=== PATIENT | male | born 1940 | race Caucasian/White ===

== ENCOUNTER → 2019-10-30 | Outpatient (CLI) | payer MEDICARE, OTHER ==
[~2019-10-30] VITALS: Ht 165 cm; Wt 93.0 kg
[~2019-10-30] MED LIST: ALLO100T PO; LISI-552 PO; MELO15TA14 PO; MULT1CAP27 PO; NAPR220T66 PO
== END ==
LOC: EDUNIT# 11:00 → PREOP 12:12
PROVIDERS: ATTEND Orthopaedic Surgery
DX: Z01.810 Encounter for preprocedural cardiovascular examination (principal); S82.831A Other fracture of upper and lower end of right fibula, initial encounter for closed fracture; S93.401A Sprain of unspecified ligament of right ankle, initial encounter
CPT/HCPCS: 93005

== ENCOUNTER 2019-11-11 07:15 | Day surgery (SDC) | payer MEDICARE, OTHER ==
[2019-11-11] VITALS (11 sets, daily range): BP systolic 138–187; BP diastolic 83–119
[~2019-11-11] VITALS: Ht 165 cm; Wt 93.0 kg
[2019-11-11] MEDS ORDERED: BUPIVACAINE 0.5% 30 ML (SENSORCAINE) VIAL ONE (07:54)
[2019-11-11] MEDS: LACTATED RINGERS 1,000 ML IV PRN ×2 (08:00→10:14)
[2019-11-11] MEDS ORDERED: ceFAZolin INJECTION 1,000 MG in WATER (STERILE) FOR INJECTION 10 ML IV ONE (08:00)
[2019-11-11] MEDS ORDERED: proPOfol 200 MG/20 ML (DIPRIVAN) VIAL IV ONE (08:19)
[2019-11-11] MEDS ORDERED: MIDAZOLAM 2 MG/2 ML (VERSED) VIAL ONE (08:19)
[2019-11-11] MEDS ORDERED: LIDOCAINE PF 2% 5 ML (XYLOCAINE) VIAL ONE (08:19)
[2019-11-11] MEDS ORDERED: fentaNYL INJECTION 100 MCG/2 ML AMP ONE ×2 (08:19→10:06)
[2019-11-11] MEDS ORDERED: CIPR-225 PO (08:43)
[2019-11-11] MEDS ORDERED: HYDR-3812 PO (08:50)
--- NOTE | 2019-11-11 09:14 | Progress Note-Pre Operative ---
Pre-Operative Progress Note H&P Reviewed The H&P was reviewed, patient examined and no changes noted. Date Seen by Provider: Nov 11, 2019 Time Seen by Provider: 07:30 Date H&P Reviewed: Nov 11, 2019 Time H&P Reviewed: 07:15 Pre-Operative Diagnosis: right distal fibula fracture and syndesmosis disruption CHRISTINA FARFAN MD Nov 11, 2019 09:14
--- NOTE | 2019-11-11 09:18 | Progress Note-Post Operative ---
Post-Operative Progess Note Surgeon (s)/Tank Storage Supervisor (s) Surgeon CHRISTINA FARFAN MD Tank Storage Supervisor: Jack Lomeli Pre-Operative Diagnosis right distal fibula fracture and syndesmosis disruption Post-Operative Diagnosis right distal fibula fracture and syndesmosis disruption Procedure & Operative Findings Date of Procedure 11/11/19 Procedure Performed/Findings open reduction and internal fixation of the right distal fibula and syndesmosis Anesthesia Type GETA Estimated Blood Loss Estimated blood loss (mL): minimal Specimens/Packing Specimens Removed none Packing: none CHRISTINA FARFAN MD Nov 11, 2019 09:18
[2019-11-11] MEDS ORDERED: oxyCODONE/APAP 5/325MG (PERCOCET 5) TABLET PO PRN (09:30)
[2019-11-11] MEDS ORDERED: ONDANSETRON 4 MG/2 ML (SDV) Z0FRAN IVP PRN (10:00)
[2019-11-11] MEDS ORDERED: morphine INJ 10 MG/ML 1ML (SYR OR VIAL) IVP ONE (10:00)
[2019-11-11] MEDS ORDERED: HYDROmorphone 2 MG/ML VIAL (DILAUDID) IV ONE (10:00)
[2019-11-11] MEDS ORDERED: SEVOFLURANE (ULTANE) 15 ML INHAL SOLN ONE ×4 (10:17→10:19)
[2019-11-11] MEDS ORDERED: ONDANSETRON 4 MG/2 ML (SDV) Z0FRAN ONE (10:17)
[2019-11-11] MEDS ORDERED: LABETALOL HCL 20 MG/4 ML VIAL ONE (10:55)
[2019-11-11] MEDS ORDERED: OXYC-471 PO (12:00)
--- NOTE | 2019-11-11 12:09 | Diagnostic Imaging Report ---
INDICATION: Fluoroscopy for right ankle ORIF. Fluoroscopy was provided in the OR during right ankle ORIF. 24 seconds of fluoroscopic time was utilized. 3 images were obtained. Images demonstrate lateral plate and numerous screws transfixing distal fibular fracture. There is a syndesmotic anchor present. Alignment appears to be anatomic. IMPRESSION: Fluoroscopy for right ankle ORIF. Dictated by: Dictated on workstation # [id number]
--- NOTE | 2019-11-11 12:35 | Anesthesia-General Post-Op ---
General Patient Condition Mental Status/LOC: Same as Preop Cardiovascular: Satisfactory Nausea/Vomiting: Absent Respiratory: Satisfactory Pain: Controlled Complications: Absent Post Op Complications Complications None Follow Up Care/Instructions Patient Instructions None needed. Anesthesia/Patient Condition Patient Condition Patient is doing well, no complaints, stable vital signs, no apparent adverse anesthesia problems. No complications reported per nursing. MICHELLE ALVARADO CRNA Nov 11, 2019 12:35
--- NOTE | 2019-11-11 14:36 | Physical Therapy Ortho Eval ---
PT Orthopedic Evaluation Type of Surgery repair post right distal fibula fracture and syndesmosis disruption Prior Level of Function Current Living Status: Spouse (son lives nearby and is available to help) Locomotion (Upon Admit): Front Wheeled Walker Established Durable Medical Eq: Front Wheeled Walker, Manual Wheelchair Pt has WB limits prior to surgery. Subjective Subjective Agrees to PT. Reports he has been walking PWB prior to surgery. Son reports they will be able to get him into the house, even if they have to carry him in the wheelchair. Report they plan to get a knee scooter. Entry Into Home: Stairs With Railing ROM ROM: WFL (right ankle NT) Strength Strength: WFL Transfer Transfers (B, C, W/C) (FIM): 5 (SBA with transfers with cues for safety. ) Gait Gait Assistive Device: FWW Right Lower Extremity: Right Weight Bearing Status RLE: Touch Toe Bearing Left Lower Extremity: Left Weight Bearing Status LLE: Full Weight Bearing Summary/Comments Pt ambulated x 40 ft with FWW, at a NWB status. Slow with gait but no chad LOB noted. Pt deferred stair training, reporting he feels he can manage as he was able to do so before. Assessment/Goals Goal Time Frame: 1 Visit Safe Ambulation: Yes Safe ambulation short distances and was NWB instead of TTWB. Cued pt that he could TTWB but he chose to be NWB for this visit. Educated pt and family on safety, TTWB status, stair training/sequencing. Verbalized understanding of all. Pt slow with gait and transfers but able to complete. Son reports he will be available as needed. Plan Treatment Plan: Discharge PT/Family Agrees to Plan: Yes Time Time In: 1230 Time Out: 1300 Total Billed Treatment Time: 30 Billed Treatment Time visit EVM 15 GT 15 SU CROCKER PT Nov 11, 2019 14:36
--- NOTE | 2019-11-11 15:06 | OPERATIVE REPORT ---
DATE OF SERVICE: 11/11/2019 PREOPERATIVE DIAGNOSES: 1. Right lateral malleolus fracture. 2. Right syndesmosis disruption. POSTOPERATIVE DIAGNOSES: 1. Right lateral malleolus fracture. 2. Right syndesmosis disruption. PROCEDURES: 1. Right lateral malleolus open reduction and internal fixation. 2. Right syndesmosis open reduction and internal fixation. SURGEON: Nakul Martino MD STORM CHASER: Jack Lomeli, who assisted throughout the procedure and closed the incision. ANESTHESIA: General endotracheal by Ellie Gardiner CRNA. TOURNIQUET TIME: 36 minutes at 300 mmHg. ESTIMATED BLOOD LOSS: Minimal. DRAINS: None. COMPLICATIONS: None. POSTOPERATIVE PLAN: Routine protocol. The patient was transferred to the recovery room awake and stable condition. STATEMENT OF MEDICAL NECESSITY: The patient is a 79-year-old gentleman who injured his right ankle approximately 3 weeks ago. Due to medical issues, he could not be scheduled until today. Radiographs revealed a Christopher type C lateral malleolus fracture with widening of the syndesmosis. Because of this, it was recommended that the patient undergo operative fixation. DESCRIPTION OF PROCEDURE: After risks and benefits of procedure were discussed and questions were answered, an informed consent was signed and placed on chart. The operative site was confirmed in the preoperative holding area initialed by the surgeon. The patient then transferred to the operating room. After adequate levels of general endotracheal anesthetic were obtained, a timeout was called, confirming the operative site. Right lower extremity was prepped and draped in the usual sterile fashion with the leg elevated, tourniquet was inflated to 300 mmHg. A lateral approach was utilized over the distal fibula. Underlying soft tissues were carefully dissected. The fracture site was identified and a 3.5 fully threaded Synthes cortical screw was placed across the fracture site with anatomic reduction obtained. A 6-hole one-third tubular plate was then placed and three cortical screws were placed proximally, three cortical screws placed distally with all excellent purchase. Fluoroscopy in AP and lateral planes revealed anatomic reduction of fracture with well-placed hardware. Under fluoroscopic visualization, a TightRope was then placed for internal fixation of the syndesmosis this was placed approximately 2 cm proximal parallel to the joint surface. This was felt to be in excellent position. The button was flipped and then tensioned with the ankle held in dorsiflexion. Under lifetime fluoroscopy revealed a stable syndesmosis and well-placed hardware in the AP and lateral planes. The wound was copiously irrigated, 0 Vicryl was used to deep subcutaneous tissue, 2-0 Vicryl for the superficial and subcutaneous tissue. The skin was closed with 4-0 nylon vertical mattress interrupted fashion. The tourniquet was deflated. Soft dressing was applied after infiltrating the incision with plain Marcaine and a postoperative boot were applied and the patient was transferred to the recovery room awake and in stable condition. Job ID: [id number] DocumentID: [id number] Dictated Date: 11/11/2019 10:36:42 Pulvi Mixer Operator Date: 11/11/2019 15:04:42 Dictated By: NAKUL MARTINO MD
== END 2019-11-11 13:30 | disposition home or self-care (01) ==
LOC: SDC 07:15
PROVIDERS: ATTEND Orthopaedic Surgery
DX: S82.61XA Displaced fracture of lateral malleolus of right fibula, initial encounter for closed fracture (principal); S93.431A Sprain of tibiofibular ligament of right ankle, initial encounter; I10 Essential (primary) hypertension; K21.9 Gastro-esophageal reflux disease without esophagitis; E11.9 Type 2 diabetes mellitus without complications; E66.9 Obesity, unspecified; M10.9 Gout, unspecified; Z79.84 Long term (current) use of oral hypoglycemic drugs; Z87.891 Personal history of nicotine dependence; Z68.34 Body mass index [BMI] 34.0-34.9, adult; Z79.899 Other long term (current) drug therapy; Z90.89 Acquired absence of other organs; Z88.8 Allergy status to other drugs, medicaments and biological substances
CPT/HCPCS: 87081; C1713